=== PATIENT | female | born 1955 | race Asian ===

== ENCOUNTER 2020-02-25 08:16 | Emergency (ER) | payer BC ==
[~2020-02-25] VITALS: Ht 165.1 cm; Wt 68.0 kg
[2020-02-25] MEDS ORDERED: SODIUM CHLORIDE 0.9% 1000ML BAG (SEPSIS BOLUS) IV ONE (09:00)
[2020-02-25 09:09] LABS: HEMATOCRIT. 34.5 % (36.0-48.0); HEMOGLOBIN. 11.5 g/dL (12.0-16.0); MEAN CORPUSCULAR HEMOGLOBIN 30.8 pg (28.0-32.0); MEAN CORPUSCULAR VOLUME 92.2 fL (81.0-99.0); PLATELET 328 x1000/uL (130-400); RED BLOOD CELL COUNT 3.74 mill/uL (4.2-5.4); RED CELL DISTRIBUTION WIDTH 13.7 % (11.6-14.6)
[2020-02-25] MEDS ORDERED: ACETAMINOPHEN 325MG TABLET PO ONE (09:15)
[2020-02-25 09:17] LABS: CHLORIDE 110 mEq/L (98-107)
[2020-02-25 09:20] LABS: PROTHROMBIN TIME 10.2 sec (9.6-11.0)
[2020-02-25 09:35] LABS: PLATELET ESTIMATE NORMAL
[2020-02-25 12:08] LABS: CLARITY URINE CLOUDY (CLEAR); COLOR URINE YELLOW (YELLOW); KETONES URINE NEGATIVE (NEGATIVE); LEUKOCYTE ESTERASE URINE 1+ (NEGATIVE); NITRITE URINE POSITIVE (NEGATIVE); OCCULT BLOOD URINE TRACE (NEGATIVE); PROTEIN URINE 3+ (NEGATIVE); SPECIFIC GRAVITY URINE 1.012 (1.005-1.030); UROBILINOGEN URINE 0.2 E.U./dL (0.2-1.0)
[2020-02-25 12:30] VITALS: BP 123/62
== END 2020-02-25 12:44 | disposition home or self-care (01) ==
LOC: ER 08:16
DX: U07.1 COVID-19 (principal); N39.0 Urinary tract infection, site not specified; E11.9 Type 2 diabetes mellitus without complications; I10 Essential (primary) hypertension
CPT/HCPCS: 36415; 71045; 80053; 81003; 83605; 84145; 85025; 85610; 87040; 87077; 87086; 87186; 93005; 99285; C9803; J7030; U0003; 87635

== ENCOUNTER 2020-02-27 13:19 | Inpatient (IN) | payer BC ==
[~2020-02-27] VITALS: Ht 165.1 cm; Wt 65.3 kg
[2020-02-27 14:30] LABS: BASOPHILS % 1.1 % (0.0-2.0); EOSINOPHILS % 3.6 % (0.0-5.0); HEMATOCRIT. 34.9 % (36.0-48.0); HEMOGLOBIN. 11.8 g/dL (12.0-16.0); LYMPHOCYTES % 21.5 % (20.0-50.0); MEAN CORPUSCULAR HEMOGLOBIN 31.2 pg (28.0-32.0); MEAN CORPUSCULAR VOLUME 92.1 fL (81.0-99.0); MEAN PLATELET VOLUME 8.5 fl (7.4-10.4); MONOCYTES % 9.2 % (2.0-8.0); NEUTROPHILS % 64.6 % (40.0-76.0); PLATELET 283 x1000/uL (130-400); RED BLOOD CELL COUNT 3.79 mill/uL (4.2-5.4)
[2020-02-27 14:36] LABS: CHLORIDE 107 mEq/L (98-107)
[2020-02-27 14:41] LABS: PROTHROMBIN TIME 10.1 sec (9.6-11.0)
[2020-02-27 15:13] LABS: CLARITY URINE CLEAR (CLEAR); COLOR URINE YELLOW (YELLOW); KETONES URINE NEGATIVE (NEGATIVE); LEUKOCYTE ESTERASE URINE NEGATIVE (NEGATIVE); NITRITE URINE NEGATIVE (NEGATIVE); OCCULT BLOOD URINE 2+ (NEGATIVE); PROTEIN URINE 4+ (NEGATIVE); SPECIFIC GRAVITY URINE 1.029 (1.005-1.030); UROBILINOGEN URINE 0.2 E.U./dL (0.2-1.0)
[2020-02-27] MEDS ORDERED: VANCOMYCIN 1 G PREMIX 200 ML IV ONE (15:30)
[2020-02-27] MEDS ORDERED: PIPERACILLIN/TAZ 3.375G PREMIX 50 ML IV ONE (15:30)
[2020-02-27] MEDS ORDERED: ONDANSETRON HCL 4MG/2ML INJ IV PRN (16:15)
[2020-02-27] MEDS ORDERED: MORPHINE SULFATE 2 MG/ML CPJ (NOT FOR IM USE) IV PRN (16:15)
[2020-02-27] MEDS ORDERED: CEFAZOLIN 1000MG PREMIX 50 ML IV SCH (17:00)
[2020-02-27] MEDS: ACETAMINOPHEN 325MG TABLET PO PRN (18:34)
[2020-02-27] MEDS: SODIUM CHLORIDE 0.45% 1,000 ML IV SCH (18:38)
[2020-02-27] MEDS: CEFAZOLIN 1000MG PREMIX 50 ML IV SCH (18:54)
[2020-02-27] MEDS ORDERED: DEXTROSE 50% WATER 50ML SYRINGE IV PRN (19:00)
[2020-02-27 20:02] VITALS: BP 121/57
[2020-02-27] MEDS: BLOOD SUGAR DIAGNOSTIC STRIP TEST SCH (20:54)
[2020-02-27] MEDS: INSULIN LISPRO 100 UNITS/ML SUBCUT SCH (21:04)
[2020-02-27 21:08] VITALS: BP 111/65
[2020-02-27] MEDS ORDERED: CEFAZOLIN SODIUM 1000MG/VIAL IV SCH (22:00)
[2020-02-27 22:10] VITALS: BP 104/52
[2020-02-28] VITALS (12 sets, daily range): BP systolic 115–162; BP diastolic 31–62
[2020-02-28] MEDS: ACETAMINOPHEN 325MG TABLET PO PRN ×4 (00:15→19:39)
[2020-02-28] MEDS: SODIUM CHLORIDE 0.45% 1,000 ML IV SCH ×3 (00:15→16:10)
[2020-02-28] MEDS: BLOOD SUGAR DIAGNOSTIC STRIP TEST SCH ×4 (06:34→20:18)
[2020-02-28 06:37] LABS: BASOPHILS % 0.6 % (0.0-2.0); EOSINOPHILS % 1.1 % (0.0-5.0); HEMATOCRIT. 28.9 % (36.0-48.0); LYMPHOCYTES % 16.2 % (20.0-50.0); MEAN CORPUSCULAR HEMOGLOBIN 31.6 pg (28.0-32.0); MEAN CORPUSCULAR VOLUME 91.4 fL (81.0-99.0); MEAN PLATELET VOLUME 8.8 fl (7.4-10.4); MONOCYTES % 6.1 % (2.0-8.0); PLATELET 217 x1000/uL (130-400); RED BLOOD CELL COUNT 3.16 mill/uL (4.2-5.4); RED CELL DISTRIBUTION WIDTH 13.7 % (11.6-14.6)
[2020-02-28 07:08] LABS: CHLORIDE 112 mEq/L (98-107)
[2020-02-28 07:18] LABS: LDL CHOLESTEROL 42 mg/dL (5-100)
[2020-02-28 07:19] LABS: HDL CHOLESTEROL 38 mg/dL (40-59)
[2020-02-28] MEDS: INSULIN LISPRO 100 UNITS/ML SUBCUT SCH ×4 (07:20→20:17)
[2020-02-28] MEDS: CEFAZOLIN 1000MG PREMIX 50 ML IV SCH ×2 (07:46→17:40)
[2020-02-28] MEDS ORDERED: PNEUMOCOCCAL 23-VAL P-SAC VAC 0.5 ML IM ONE (08:00)
[2020-02-28] MEDS: AMLODIPINE 5MG TABLET PO SCH (15:25)
[2020-02-28] MEDS ORDERED: ATORVASTATIN CALCIUM 20MG TABLET PO SCH (21:00)
[2020-02-28] MEDS ORDERED: INSULIN GLARGINE UD 100 UNITS/ML SYR SUBCUT SCH (22:00)
[2020-02-29] VITALS (8 sets, daily range): BP systolic 106–158; BP diastolic 51–66
[2020-02-29] MEDS: SODIUM CHLORIDE 0.45% 1,000 ML IV SCH ×2 (00:57→08:10)
[2020-02-29] MEDS: ACETAMINOPHEN 325MG TABLET PO PRN ×3 (02:01→14:11)
[2020-02-29] MEDS: BLOOD SUGAR DIAGNOSTIC STRIP TEST SCH ×2 (06:10→12:15)
[2020-02-29] MEDS: CEFAZOLIN 1000MG PREMIX 50 ML IV SCH (06:10)
[2020-02-29] MEDS: INSULIN LISPRO 100 UNITS/ML SUBCUT SCH ×2 (07:20→12:32)
[2020-02-29] MEDS: AMLODIPINE 5MG TABLET PO SCH (08:24)
[2020-02-29] MEDS ORDERED: SODIUM BICARBONATE 4% (2.4MEQ) 5ML VIAL IV ONE (08:25)
[2020-02-29] MEDS ORDERED: LIDOCAINE HCL 1% 20ML VIAL (Pyxis) INJ ONE (08:25)
[2020-02-29] MEDS ORDERED: CEFTRIAXONE 1 G PREMIX 50 ML IV SCH (08:45)
[2020-02-29] MEDS ORDERED: CEFTRIAXONE 1,000 MG in DEXTROSE 5% WATER 50 ML IV SCH (09:00)
== END 2020-02-29 15:42 | disposition home health service (06) | DRG 871 ==
LOC: ER 13:19 → EDBEDREQTM 15:31 → EDBEDREQSVC 15:31 → EDBEDREQTM 16:30 → EDBEDREQ 16:30 → EDBEDREQSVC 16:30 → SUPCPDRO 16:48 → ENRESERV 17:18 → 3WST 18:04
PROVIDERS: ADMIT Internal Medicine Nephrology; ATTEND Internal Medicine Nephrology
PROC: 02H633Z Insertion of Infusion Device into Right Atrium, Percutaneous Approach (ICD-10-PCS; principal; 2020-02-29)
PROC: B518ZZA Fluoroscopy of Superior Vena Cava, Guidance (ICD-10-PCS; 2020-02-29)
PROC: B548ZZA Ultrasonography of Superior Vena Cava, Guidance (ICD-10-PCS; 2020-02-29)
DX: A41.51 Sepsis due to Escherichia coli [E. coli] (principal); N17.0 Acute kidney failure with tubular necrosis; N39.0 Urinary tract infection, site not specified; Z16.23 Resistance to quinolones and fluoroquinolones; N18.9 Chronic kidney disease, unspecified; E11.22 Type 2 diabetes mellitus with diabetic chronic kidney disease; I12.9 Hypertensive chronic kidney disease with stage 1 through stage 4 chronic kidney disease, or unspecified chronic kidney disease; D64.9 Anemia, unspecified; E86.9 Volume depletion, unspecified; I48.91 Unspecified atrial fibrillation; Z87.440 Personal history of urinary (tract) infections
CPT/HCPCS: 36415; 36573; 71045; 76937; 80053; 80061; 81003; 82962; 83036; 83605; 84145; 84484; 85025; 87077; 87186; 90732; 93005; 93306; 96365; 97162; 97165; 99285; C1725; J0690; J0696; J1815; J2270; J2543; J3490; J7060

== ENCOUNTER → 2020-03-13 | Outpatient (CLI) | payer BC ==
[2020-03-13 19:14] LABS: BASOPHILS % 1.4 % (0.0-2.0); EOSINOPHILS % 2.9 % (0.0-5.0); HEMATOCRIT. 32.5 % (36.0-48.0); HEMOGLOBIN. 11.1 g/dL (12.0-16.0); MEAN CORPUSCULAR HEMOGLOBIN 31.7 pg (28.0-32.0); MEAN CORPUSCULAR VOLUME 92.8 fL (81.0-99.0); MEAN PLATELET VOLUME 7.9 fl (7.4-10.4); MONOCYTES % 6.6 % (2.0-8.0); NEUTROPHILS % 56.1 % (40.0-76.0); PLATELET 452 x1000/uL (130-400); RED CELL DISTRIBUTION WIDTH 14.3 % (11.6-14.6)
[2020-03-13 19:29] LABS: CHLORIDE 103 mEq/L (98-107)
[2020-03-13 19:37] LABS: LDL CHOLESTEROL 68 mg/dL (5-100)
[2020-03-13 19:39] LABS: HDL CHOLESTEROL 62 mg/dL (40-59)
== END | disposition home or self-care (01) ==
LOC: LAB 17:09
PROVIDERS: ATTEND Internal Medicine
DX: E78.5 Hyperlipidemia, unspecified (principal); I10 Essential (primary) hypertension; E11.9 Type 2 diabetes mellitus without complications
CPT/HCPCS: 36415; 80053; 80061; 82248; 83036; 84436; 84443; 85025